=== PATIENT | male | born 1950 | race Caucasian/White ===

== ENCOUNTER → 2017-01-22 | Outpatient (CLI) | payer MEDICARE, OTHER ==
--- NOTE | 2017-01-23 10:43 | US ---
EXAM DESCRIPTION: Venous,Lower Extremity LT CLINICAL HISTORY: SOFT TISSUE SWELLING COMPARISON: None Available. TECHNIQUE: Left lower extremity venous duplex FINDINGS: There is no DVT identified. No filling defects are noted. Examination was accomplished from the common femoral vein to the level of the posterior tibial veins. There is normal color flow observed with good flow augmentation. All deep veins compress normally. IMPRESSION: Negative left lower extremity DVT sonogram Electronically signed by: Tad Diaz MD 01/23/2017 10:42 AM CDT
--- NOTE | 2017-01-23 10:54 | US ---
EXAM DESCRIPTION: Soft Tissue,Extremity CLINICAL HISTORY: 66 years Male, SOFT TISSUE SWELLING COMPARISON: None. FINDINGS: Sonographic evaluation of the left knee anteriorly demonstrates a slightly hypoechoic soft tissue density that abuts bony structures is at or near the patellar insertion into the tibial tuberosity. A heterogeneous slightly hypoechoic 2.0 x 2.2 x 0.9 cm soft tissue density consistent with a small hematoma is present at or near the tibial tuberosity in this patient who is on anticoagulants. IMPRESSION: Small soft tissue mass consistent with hematoma in the infrapatellar region near the tibial tuberosity measuring 2.2 cm in maximal length. Electronically signed by: Tad Diaz MD 01/23/2017 10:53 AM CDT
== END | disposition home or self-care (01) ==
LOC: RAD 12:28
PROVIDERS: ATTEND Family Medicine
DX: M79.89 Other specified soft tissue disorders (principal); R60.0 Localized edema